=== PATIENT | male | born 1960 | race Caucasian/White ===

== ENCOUNTER 2020-12-28 10:43 | Emergency (ER) | payer BC ==
[~2020-12-28] VITALS: Ht 177.8 cm; Wt 107.0 kg
[~2020-12-28 10:43] MED LIST: AMARYL4 MG PO; ASPIRIN EC81 M1 PO; CALCIUM 600 +1 EA10 OR; CENTRUM COMPLE1 EACH PO; CENTRUM TABLET1 TAB OR; CINNAMON OR; CO Q-10100 MG PO; COLACE100 MG OR; COMBIVENT RESPIM4 GM INH; COREG3.125 MG PO; EFFIENT10 MG PO; FISH OIL 1,0001 EAC5 PO; GINKGO BILOBA40 M1 OR; GLUCOPHAGE500 MG PO; HUMALOG100 UNIT/1 IJ; HYDROCODONE-AP1 EAC6 PO; KRILL OIL 3001 EACH; LANTUS SUBQ; LEVAQUIN 500 M500 M2 PO; LIPITOR80 MG PO; LISINOPRIL10 MG OR; LISINOPRIL20 MG PO; MIRALAX17 GM PO; MULTIVITAMINS1 EAC7 PO; NITROGLYCERIN0.4 MG SUBLING; NORCO 5-325 TA1 EACH PO; OMEPRAZOLE20 M2 PO; OXYCONTIN40 MG OR; PLAVIX 75 MG TA75 M1; PLAVIX 75 MG TA75 M1 PO; ROBAXIN 750 MG750 M1 PO; SINGULAIR 10 MG10 M1; TYLENOL325 MG PO; VITAMIN E400 UNIT PO; ZETIA10 MG PO; ZINC50 M1 PO
[2020-12-28] MEDS ORDERED: GARLIC OIL1000 MG PO (10:58)
[2020-12-28] MEDS ORDERED: TRESIBA FL200 UNIT/1 SUBQ (10:59)
[2020-12-28 11:27] LABS: URINE BILIRUBIN NEGATIVE (Negative); URINE BLOOD NEGATIVE (Negative); URINE CLARITY CLEAR; URINE COLOR YELLOW; URINE GLUCOSE-RANDOM NEGATIVE (Negative); URINE KETONES NEGATIVE (Negative); URINE LEUKOCYTES-REFLEX NEGATIVE (Negative); URINE NITRITE-REFLEX NEGATIVE (Negative); URINE PROTEIN NEGATIVE (Negative); URINE UROBILINOGEN 0.2 E.U./dl (0.2-1.0)
[2020-12-28 11:28] LABS: ABSOLUTE BASOPHILS 0.1 thou/uL (0.0-0.2); ABSOLUTE EOSINOPHILS 0.2 thou/uL (0.0-0.7); ABSOLUTE LYMPHOCYTES 2.4 thou/uL (0.8-5.3); ABSOLUTE MONOCYTES 0.7 thou/uL (0.0-1.2); ABSOLUTE NEUTROPHILS 7.2 thou/uL (1.6-8.1); BASOPHILS 0.8 %; EOSINOPHILS 1.8 %; HEMATOCRIT 39.4 % (42.0-52.0); HEMOGLOBIN 13.3 gm/dL (14.0-18.0); MCH 29.2 pg (26.0-34.0); MCHC 33.7 g/dL (28.0-37.0); MCV 86.4 fL (80.0-100.0); MONOCYTES 6.7 %; MPV 7.2 fl. (7.2-11.1); NUCLEATED RBCS 0 /100WBC; PLATELET COUNT* 302 thou/uL (150-400); POLYS 67.7 %; RBC 4.56 mil/uL (4.50-6.00); RDW-CV 13.1 % (10.5-14.5); WBC 10.6 thou/uL (4.0-11.0)
[2020-12-28 11:46] LABS: CALCIUM 9.4 mg/dL (8.5-10.1); POTASSIUM 4.4 mmol/L (3.5-5.1)
[2020-12-28 11:50] LABS: ALBUMIN 3.8 g/dL (3.4-5.0); TOTAL BILIRUBIN 0.6 mg/dL (<0.1-1.0)
[2020-12-28 12:50] VITALS: BP 141/65
--- NOTE | 2020-12-28 16:32 | EKG ---
[place] [address] ELECTROCARDIOGRAM REPORT Name: CHARLEY ELLSWORTH Room: [facility]#: [id number] Admission: 12/28/20 Attend Phys: Discharge: 12/28/20 Date of : 56 Date of Service: 12/28/20 1112 Report #: [id number] THIS REPORT FOR: //name// [facility] ED Test Date: 2020-12-28 Test Time: 11:12:53 Pat Name: CHARLEY ELLSWORTH Department: Room: Gender: [place] Folder: : 1960 Requested By: Mar Basilio Order Number: [id number] MD: Edmond Ordonez Measurements Intervals [place] Rate: 82 P: 38 NV: 164 QRS: -28 QRSD: 97 T: 110 QT: 402 QTc: 470 Interpretive Statements Sinus rhythm LVH by voltage Left axis deviation Baseline wander in lead(s) V1 Compared to ECG 02/25/2015 07:34:51 No significant changes noted when compared to previous EKG Electronically Signed On 12-28-2020 16:32:39 [employer] ASS[employer]IATE by Edmond Ordonez [email or web address] <ELECTRONICALLY SIGNED> By: Edmond Ordonez MD, FACC 12/28/20 1632 1112 111 Edmond Ordonez MD, [facility] /EPI
== END 2020-12-28 12:50 | disposition home or self-care (01) ==
LOC: M.ERS 10:43
PROVIDERS: Physician Assistant
DX: I10 Essential (primary) hypertension (principal); K21.9 Gastro-esophageal reflux disease without esophagitis; E11.9 Type 2 diabetes mellitus without complications; I25.10 Atherosclerotic heart disease of native coronary artery without angina pectoris; Z95.5 Presence of coronary angioplasty implant and graft; E78.00 Pure hypercholesterolemia, unspecified; Z79.899 Other long term (current) drug therapy; Z79.82 Long term (current) use of aspirin; Z79.4 Long term (current) use of insulin; Z91.041 Radiographic dye allergy status; Z88.8 Allergy status to other drugs, medicaments and biological substances